=== PATIENT | male | born 1975 | race Caucasian/White ===

== ENCOUNTER 2018-03-25 09:05 | Emergency (ER) | payer BC, OTHER ==
[~2018-03-25 09:05] MED LIST: Sodium Chloride 0.9% 50 ML SDV FLUSH ONE
[2018-03-25] MEDS ORDERED: Sodium Chloride 0.9% 2,000 ML ONE (09:44)
[2018-03-25] MEDS ORDERED: Tetracaine HCl/PF 0.5% 4 ML Bottle EYEBOTH ONE (09:48)
--- NOTE | 2018-03-25 09:54 | EDM.PDOC ---
ED HPI GENERAL MEDICAL PROBLEM - General Chief Complaint: Eye Problems Stated Complaint: CHEMICAL IN EYES (8% COPPER) Time Seen by Provider: 03/25/18 09:48 Source of Information: Reports: Patient History Limitations: Reports: No Limitations - History of Present Illness INITIAL COMMENTS - FREE TEXT/NARRATIVE: Patient is a 42-year-old gentleman who presents to the emergency department this morning with a complaint of accidental chemical contact in eyes and face. Patient states that he was working on an irrigation pump, and back pressure sprayed chemicals in face and eyes. Chemical mixture includes ammonium hydroxide, copper sulfate, citric acid. states that he did not inhale nor have chemicals in his mouth. Patient denies shortness of breath, difficulty swallowing, chest pain, nausea or vomiting. Initial Ph on litmus paper was 7.0 Onset: Today, Sudden Duration: Minutes: Location: Reports: Face Quality: Reports: Burning Severity: Moderate Improves with: Reports: None Worsens with: Reports: None Context: Reports: Trauma (Chemical sprayed in face and eyes) Associated Symptoms: Reports: No Other Symptoms - Related Data Allergies Allergy/AdvReac Type Severity Reaction Status Date / Time azithromycin [From Zithromax] Allergy Dizziness Verified 03/25/18 09:57 codeine Allergy Fainting Verified 01/14/14 13:43 Home Meds: Home Meds Dapagliflozin Propanediol [Farxiga] 10 mg PO DAILY 03/25/18 [History] Fluconazole [Diflucan] 150 mg PO ASDIRECTED 03/25/18 [History] Lisinopril 10 mg PO DAILY 03/25/18 [History] Rosuvastatin Calcium 20 mg PO DAILY 03/25/18 [History] metFORMIN HCl [Metformin HCl ER] 1,000 mg PO BIDMEALS 03/25/18 [History] ED ROS GENERAL - Review of Systems Review Of Systems: ROS reveals no pertinent complaints other than HPI. Constitutional: Reports: No Symptoms HEENT: Reports: Eye Pain Cardiovascular: Reports: No Symptoms Endocrine: Reports: No Symptoms GI/Abdominal: Reports: No Symptoms : Reports: No Symptoms Musculoskeletal: Reports: No Symptoms Skin: Reports: No Symptoms Neurological: Reports: No Symptoms Psychiatric: Reports: No Symptoms Hematologic/Lymphatic: Reports: No Symptoms Immunologic: Reports: No Symptoms ED EXAM GENERAL W FULL EYE - Physical Exam Exam: See Below Exam Limited By: No Limitations General Appearance: Alert, WD/WN, Mild Distress Eye Exam: Bilateral Eye: Conjunctival Injection Visual Acuity (R) 20/: 20 Visual Acuity (L) 20/: 20 With Correction: No Eyelids: Bilateral: Normal Appearance Conjunctiva & Sclera: Bilateral: Injected Cornea Exam: Bilateral: Normal Appearance Extraocular Movements: Bilateral: Intact Pupils: Normal Accommodation Pupillary Reaction: Bilateral: Brisk Nose: Normal Inspection, Normal Mucosa, No Blood Throat/Mouth: Normal Inspection, Normal Oropharynx, No Airway Compromise Head: Atraumatic, Normocephalic Respiratory/Chest: No Respiratory Distress, Lungs Clear Cardiovascular: Regular Rate, Rhythm Extremities: Normal Inspection Neurological: Alert, Oriented, Normal Cognition Psychiatric: Normal Affect, Normal Mood Skin Exam: Warm, Dry, Intact, Normal Color, No Rash ED EYE w/ Add Procedure - Eye Procedure Alcaine Drops Administered: Yes Eye Irrigated w/ Saline (ccs): 2,000 Antibiotic Oinment/Drps Admin: Both Eyes Progress: PH is 7.0. Post irrigation. - Additional/Other Procedure(s) Other (Free Text) Procedure(s) [Text1]: No corneal abrasion or ulceration noted. Course - Orders/Labs/Meds Orders: Active Orders 24 hr Category Date Time Status Tetracaine HCl/PF [Tetracaine 0.5% Steri-Unit Nadia] Med 03/25/18 09:48 Once 1 ml EYEBOTH ASDIRECTED ONE Meds: Medications Discontinued Medications Generic Name Dose Route Start Last Admin Trade Name David PRN Reason Stop Dose Admin Sodium Chloride Confirm 03/25/18 09:44 Normal Saline Administered 03/25/18 09:45 Dose 2,000 mls @ as directed .ROUTE .STK-MED ONE - Re-Assessments/Exams Free Text/Narrative Re-Assessment/Exam: 03/25/18 10:51 Patient afebrile, nontoxic appearing, vital signs stable. Patient tolerated procedure very well. PH remained the same at 7.0. Visual acuity remain the same as well. Erythromycin ointment was administered. Initially family thought he was allergic to Zithromax, however, that was taken in conjunction with codeine at one time and he became dizzy. No true allergic reaction to azithromycin. Patient will follow-up with local elephant keeper tomorrow. If unable to then will return to emergency department for recheck. Departure - Departure Time of Disposition: 10:59 Disposition: Home, Self-Care 01 Condition: Good Clinical Impression: Chemical conjunctivitis of both eyes - Discharge Information Instructions: Chemical Conjunctivitis, Adult, [id number] Referrals: Breanna Ochoa MD [Primary Care Provider] - Forms: ED Department Discharge Additional Instructions: Follow-up at optometry tomorrow. If unable, then either follow-up with Dr. Jojo Bang in the clinic, or in the emergency department for recheck. Use erythromycin ointment twice a day. Cool compress for discomfort. - My Orders Last 24 Hours: My Active Orders 03/25/18 09:48 Tetracaine HCl/PF [Tetracaine 0.5% Steri-Unit Nadia] 1 ml EYEBOTH ASDIRECTED ONE - Assessment/Plan Last 24 Hours: My Active Orders 03/25/18 09:48 Tetracaine HCl/PF [Tetracaine 0.5% Steri-Unit Nadia] 1 ml EYEBOTH ASDIRECTED ONE Assessment:: Chemical conjunctivitis Plan: Follow-up with elephant keeper tomorrow.
[2018-03-25] MEDS ORDERED: Erythromycin Base 0.5% Ophth Oint 1 GM Tube EYEBOTH ONE (10:48)
[2018-03-25] MEDS ORDERED: Erythromycin Base 0.5% Ophth Oint 3.5 GM Tube ONE (10:52)
== END 2018-03-25 11:10 | disposition home or self-care (01) ==
LOC: KA.ED 09:05
DX: H10.213 Acute toxic conjunctivitis, bilateral (principal); Z79.899 Other long term (current) drug therapy; Z88.1 Allergy status to other antibiotic agents; Z88.5 Allergy status to narcotic agent
CPT/HCPCS: 99283; A9270; J7030

== ENCOUNTER 2019-02-20 11:43 | Emergency (ER) | payer BC ==
--- NOTE | 2019-02-20 12:30 | EDM.PDOC ---
ED HPI GENERAL MEDICAL PROBLEM - General Chief Complaint: General Stated Complaint: CELLULITIS Time Seen by Provider: 02/20/19 11:59 Source of Information: Reports: Patient, Significant Other History Limitations: Reports: No Limitations - History of Present Illness INITIAL COMMENTS - FREE TEXT/NARRATIVE: Patient presents with left leg pain and redness, and fever. The leg pain started two days ago and the fever yesterday, up to 100.4. He denies any injury or puncture of leg. He thinks he has had MRSA some time in the past from an abscess in his groin. Yesterday he was in [place] and went to urgent care and was started on Augmentin. He has had two doses starting about 18 hours ago. He isn't feeling any better and the redness has extended a little further than it was yesterday. left leg Pain Score (Numeric/FACES): 4 - Related Data Allergies Allergy/AdvReac Type Severity Reaction Status Date / Time azithromycin [From Zithromax] Allergy Dizziness Verified 02/20/19 12:37 codeine Allergy Fainting Verified 02/20/19 12:37 Home Meds: Home Meds Aspirin [Halfprin] 81 mg PO DAILY 03/25/18 [History] Lisinopril 10 mg PO DAILY 03/25/18 [History] Rosuvastatin Calcium 20 mg PO DAILY 03/25/18 [History] metFORMIN HCl [Metformin HCl ER] 1,000 mg PO BIDMEALS 03/25/18 [History] Amoxicillin/Clavulanate K [Augmentin 875-125 MG] 1 tab PO BID 02/20/19 [History] Past Medical History Cardiovascular History: Reports: High Cholesterol, Hypertension Endocrine/Metabolic History: Reports: Diabetes, Type II Social & Family History - Caffeine Use Caffeine Use: Reports: Coffee ED ROS GENERAL - Review of Systems Review Of Systems: See Below Constitutional: Reports: Fever, Malaise Respiratory: Denies: Shortness of Breath, Cough Cardiovascular: Denies: Chest Pain, Lightheadedness, Syncope GI/Abdominal: Denies: Abdominal Pain, Constipation, Diarrhea, Nausea, Vomiting : Denies: Discharge, Dysuria, Flank Pain Musculoskeletal: Reports: Leg Pain. Denies: Neck Pain, Shoulder Pain, Arm Pain , Back Pain, Hand Pain, Foot Pain Skin: Denies: Cyanosis, Jaundice, Mottled, Pallor, Diaphoresis Neurological: Denies: Confusion, Seizure, Syncope, Trouble Speaking, Difficulty Walking Psychiatric: Denies: Agitation, Anxiety, Confusion Hematologic/Lymphatic: Denies: Anemia, Easy Bleeding ED EXAM, GENERAL - Physical Exam Exam: See Below Exam Limited By: No Limitations General Appearance: Alert, WD/WN, No Apparent Distress Eye Exam: Bilateral Eye: EOMI, Normal Inspection, PERRL Ears: Normal External Exam, Hearing Grossly Normal Nose: Normal Inspection, No Blood Throat/Mouth: Normal Inspection, Normal Lips, Normal Voice, No Airway Compromise Head: Atraumatic, Normocephalic Neck: Normal Inspection, Full Range of Motion Respiratory/Chest: No Respiratory Distress, Lungs Clear, Normal Breath Sounds Cardiovascular: Regular Rate, Rhythm, No Murmur GI/Abdominal: Normal Bowel Sounds, Soft, Non-Tender, No Organomegaly, No Distention Extremities: Redness (left medial distal thigh approximately 4x8 inches) Neurological: Alert, Oriented, Normal Cognition, No Motor/Sensory Deficits Psychiatric: Normal Affect, Normal Mood Skin Exam: Warm, Dry, Intact, Normal Color (except leg lesion), No Rash Course - Vital Signs Last Recorded V/S: Last Vital Signs Temp 98.2 F 02/20/19 11:52 Pulse 95 02/20/19 11:52 Resp 20 02/20/19 11:52 BP 125/69 02/20/19 11:52 Pulse Ox 97 02/20/19 11:52 - Orders/Labs/Meds Orders: Active Orders 24 hr Category Date Time Status CULTURE BLOOD [BC] Stat Lab 02/20/19 12:22 Ordered CULTURE BLOOD [BC] Stat Lab 02/20/19 12:22 Ordered Blood Culture x2 Reflex Set [OM.PC] Stat Oth 02/20/19 12:21 Ordered Labs: Laboratory Tests 02/20/19 02/20/19 02/20/19 Range/Units 12:22 12:22 12:22 WBC 5.62 (5.00-10.00) 10^3/uL RBC 5.21 (4.50-6.00) 10^6/uL Hgb 16.5 (13.0-17.0) g/dL Hct 46.9 (40.0-52.0) % MCV 90.0 (82.0-92.0) fL MCH 31.7 H (27.0-31.0) pg MCHC 35.2 (32.0-36.0) g/dL RDW 12.6 (11.5-14.5) % Plt Count 108 L (150-400) 10^3/uL MPV 9.6 (7.4-10.4) fL Immature Gran % (Auto) 0.2 (0.0-5.0) % Neut % (Auto) 64.3 (50.0-70.0) % Lymph % (Auto) 18.9 L (20.0-40.0) % [place] % (Auto) 15.7 H (2.0-8.0) % Eos % (Auto) 0.7 L (1.0-3.0) % Baso % (Auto) 0.2 (0.0-1.0) % Immature Gran # (Auto) 0.01 (0.00-0.50) 10^3/uL Neut # (Auto) 3.62 (2.50-7.00) 10^3/uL Lymph # (Auto) 1.06 (1.00-4.00) 10^3/uL [place] # (Auto) 0.88 H (0.10-0.80) 10^3/uL Eos # (Auto) 0.04 L (0.10-0.30) 10^3/uL Baso # (Auto) 0.01 (0.00-0.10) 10^3/uL Sodium 138 (136-145) mmol/L Potassium 4.0 (3.3-5.3) mmol/L Chloride 103 (98-115) mmol/L Carbon Dioxide 24.2 (21.0-32.0) mmol/L Anion Gap 14.8 (5-15) mmol/L BUN 11 (6-25) mg/dL Creatinine 0.78 (0.51-1.17) mg/dL Est Cr Clr Drug Dosing 115.71 mL/min Estimated GFR (MDRD) > 60 mL/min Glucose 210 H (75 - 99) mg/dL Lactic Acid 3.5 H (0.4-2.0) mmol/L Calcium 8.8 (8.7-10.3) mg/dL - Re-Assessments/Exams Free Text/Narrative Re-Assessment/Exam: 02/20/19 13:08 Labs all good. With no fever or leukocytosis and patient feeling okay now, I discussed treatment plan with Dr. Alfonso (PCP) and with patient. Patient discharged to home in stable condition. 02/20/19 13:10 Lactic acid is a little elevated at 3.5; blood cultures are pending. Departure - Departure Time of Disposition: 13:05 Disposition: Home, Self-Care 01 Condition: Good Clinical Impression: Left leg cellulitis, History of MRSA infection - Discharge Information Instructions: Cellulitis, Adult, [id number] Referrals: Breanna Ochoa MD [Primary Care Provider] - Forms: ED Department Discharge Additional Instructions: 1. Drink 8 cups of water daily. 2. Take the Bactrim as directed. 3. Stop the Augmentin. 4. Follow up tomorrow in clinic if still worsening. Otherwise recheck with your doctor in ten days if not completely resolved. - My Orders Last 24 Hours: My Active Orders 02/20/19 12:21 Blood Culture x2 Reflex Set [OM.PC] Stat 02/20/19 12:22 CULTURE BLOOD [BC] Stat CULTURE BLOOD [BC] Stat - Assessment/Plan Last 24 Hours: My Active Orders 02/20/19 12:21 Blood Culture x2 Reflex Set [OM.PC] Stat 02/20/19 12:22 CULTURE BLOOD [BC] Stat CULTURE BLOOD [BC] Stat
[2019-02-20 13:04] LABS: ANION GAP 14.8 mmol/L (5-15); CHLORIDE,CL 103 mmol/L (98-115); SODIUM,NA 138 mmol/L (136-145)
== END 2019-02-20 13:16 | disposition home or self-care (01) ==
LOC: KA.ED 11:43
DX: L03.116 Cellulitis of left lower limb (principal); I10 Essential (primary) hypertension; E11.9 Type 2 diabetes mellitus without complications; Z88.1 Allergy status to other antibiotic agents; Z88.5 Allergy status to narcotic agent; Z86.14 Personal history of Methicillin resistant Staphylococcus aureus infection; Z79.82 Long term (current) use of aspirin; Z79.899 Other long term (current) drug therapy
CPT/HCPCS: 36415; 80048; 83605; 85025; 87040; 99283

== ENCOUNTER 2020-12-21 21:31 | Emergency (ER) | payer BC ==
[2020-12-21] MEDS ORDERED: Sodium Chloride 0.9% 10 ML Syringe FLUSH PRN (21:37)
[2020-12-21] MEDS ORDERED: Sodium Chloride 0.9% 1,000 ML IV ONE ×2 (21:38→22:36)
[2020-12-21] MEDS ORDERED: Ondansetron 4 MG/2 ML SDV IVPUSH ONE (21:38)
[2020-12-21] MEDS ORDERED: Ketorolac 30 MG/ML SDV IVPUSH ONE (21:39)
--- NOTE | 2020-12-21 21:39 | EDM.PDOC ---
ED HPI GENERAL MEDICAL PROBLEM - General Chief Complaint: General Stated Complaint: HYPERTENSION, N/V Time Seen by Provider: 12/21/20 21:31 Source of Information: Reports: Patient, Family - History of Present Illness INITIAL COMMENTS - FREE TEXT/NARRATIVE: Aleksandr, 45 year old male, presents to the emergency department by private vehicle accompanied by his . He stated roughly at 1930 or so that he did not feel well after having a cup of coffee and eating part of a cucumber. He felt general malaise with the onset of a headache similar to previous headaches strength, but this headache was more the top of his head or chronic recurring headaches are unilateral. that he experiences roughly twice monthly. 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 His glucose was over 300 when checked at home and blood pressure was significantly elevated. As he was transported here by private vehicle he became nauseous upon arrival at the hospital and had significant emesis of his coffee and food product he had eaten in the past hour. Mild abdominal discomfort with nausea persisting as well as headache with some photophobia. Headache is described as having visual changes that I would interpret as an aura that then resolved with pain of the headache ensuing. He is a known diabetic and is due for upcoming lab work currently on lisinopril 10mg, glipizide, Metformin, and Ozempic. ..His states that he drinks a significant amount of coffee predominantly in the morning and early part of the day Onset: Today, Sudden Duration: Minutes:, Getting Worse Location: Reports: Head - Related Data Allergies Allergy/AdvReac Type Severity Reaction Status Date / Time azithromycin [From Zithromax] Allergy Dizziness Verified 12/21/20 22:03 codeine Allergy Fainting Verified 12/21/20 22:03 Home Meds: Home Meds Aspirin [Halfprin] 81 mg PO DAILY 03/25/18 [History] Lisinopril 10 mg PO DAILY 03/25/18 [History] Rosuvastatin Calcium 20 mg PO BEDTIME 03/25/18 [History] metFORMIN HCl [Metformin HCl ER] 1,500 mg PO DAILY 03/25/18 [History] Semaglutide [Ozempic] 0.25 mg SQ Q7D 12/21/20 [History] metFORMIN [Glucophage] 1,000 mg PO BEDTIME 12/21/20 [History] Past Medical History Cardiovascular History: Reports: High Cholesterol, Hypertension Neurological History: Reports: Headaches, Chronic, Migraines. Denies: Concussion, Head Trauma Endocrine/Metabolic History: Reports: Diabetes, Type II Dermatologic History: Reports: Cellulitis - Infectious Disease History Infectious Disease History: Reports: MRSA Social & Family History - Family History Family Medical History: No Pertinent Family History - Tobacco Use Tobacco Use Status *Q: Never Tobacco User Tobacco Use Within Last Twelve Months: No - Caffeine Use Caffeine Use: Reports: Coffee - Alcohol Use Alcohol Use History: No ED ROS GENERAL - Review of Systems Review Of Systems: See Below Constitutional: Reports: Malaise HEENT: Reports: No Symptoms Respiratory: Reports: No Symptoms Cardiovascular: Reports: No Symptoms Endocrine: Reports: Fatigue, High Glucose GI/Abdominal: Reports: Nausea, Vomiting : Reports: No Symptoms Musculoskeletal: Reports: No Symptoms Skin: Reports: No Symptoms Neurological: Reports: Headache Psychiatric: Reports: No Symptoms Hematologic/Lymphatic: Reports: No Symptoms Immunologic: Reports: No Symptoms ED EXAM, GENERAL - Physical Exam Exam: See Below Free Text/Narrative:: Alert, oriented, in nauseous distress. Stomach contents appear early digestive stage. HEENT is negative discharge or deformity. PERRLA no icterus no injection. Limited nondilated funduscopy as he is extremely photophobic. [place] moist mucous membranes. Neck is soft supple no JVD nor bruit is appreciated. Thorax is overall clear with no wheezes no crackles. Cardiac is regular I do not appreciate any murmur. Abdomen has bowel sounds present it is slightly firm but nontender no guarding no mass palpable. Moves extremities about with no difficulty, and with full symmetry, and strength. He was able to ambulate to the vehicle and has he ambulated from the vehicle to the department was placed in a wheelchair and brought to the room. #1 Interpretation EKG Date: 12/21/20 Time: 21:50 Rhythm: NSR Rate (Beats/Min): 79 [place]: Normal P-Wave: Present QRS: Normal ST-T: Normal QT: Normal Comparison: NA - No Prior EKG Course - Vital Signs Last Recorded V/S: Last Vital Signs Temp 96.6 F L 12/21/20 21:55 Pulse 84 12/21/20 21:55 Resp 20 12/21/20 21:55 BP 141/98 H 12/21/20 21:55 Pulse Ox 95 12/21/20 21:55 - Orders/Labs/Meds Orders: Active Orders 24 hr Category Date Time Status Blood Glucose Check, Bedside [RC] ONETIME Care 12/21/20 21:37 Active EKG Documentation Completion [RC] ASDIRECTED Care 12/21/20 21:35 Active Peripheral IV Care [RC] . DIRECTED Care 12/21/20 21:37 Active Abdomen Series w Chest 1V [CR] Stat Exams 12/21/20 21:35 Ordered AMYLASE [CHEM] Stat Lab 12/21/20 21:34 Ordered COMPREHENSIVE METABOLIC PN,CMP [CHEM] Stat Lab 12/21/20 21:34 Ordered LACTIC ACID [CHEM] Stat Lab 12/21/20 21:34 Ordered LIPASE [CHEM] Stat Lab 12/21/20 21:34 Ordered TROPONIN I HIGH SENSITIVITY [CHEM] Stat Lab 12/21/20 21:34 Ordered Sodium Chloride 0.9% [Normal Saline] 1,000 ml Med 12/21/20 21:38 Active IV .BOLUS Sodium Chloride 0.9% [Saline Flush] Med 12/21/20 21:37 Active 10 ml FLUSH Q8HR PRN Peripheral IV Insertion Adult [OM.PC] Routine Oth 12/21/20 21:37 Ordered EKG 12 Lead [EK] Urgent Ther 12/21/20 21:34 Ordered Medication Orders Sodium Chloride (Normal Saline) 1,000 mls @ 999 mls/hr IV .BOLUS ONE Stop: 12/21/20 22:38 Last Admin: 12/21/20 21:51 Dose: 999 mls/hr Documented by: WILDA Sodium Chloride (Sodium Chloride 0.9% 10 Ml Syringe) 10 ml FLUSH Q8HR PRN PRN Reason: keep vein open Labs: Laboratory Tests 12/21/20 Range/Units 21:41 WBC 8.39 (5.00-10.00) 10^3/uL RBC 5.48 (4.50-6.00) 10^6/uL Hgb 17.5 H (13.0-17.0) g/dL Hct 47.7 (40.0-52.0) % MCV 87.0 (82.0-92.0) fL MCH 31.9 H (27.0-31.0) pg MCHC 36.7 H (32.0-36.0) g/dL RDW 12.4 (11.5-14.5) % Plt Count 137 L (150-400) 10^3/uL MPV 9.7 (7.4-10.4) fL Immature Gran % (Auto) 0.4 (0.0-5.0) % Neut % (Auto) 39.5 L (50.0-70.0) % Lymph % (Auto) 48.5 H (20.0-40.0) % [place] % (Auto) 10.6 H (2.0-8.0) % Eos % (Auto) 1.0 (1.0-3.0) % Baso % (Auto) 0.0 (0.0-1.0) % Neut # (Auto) 3.32 (2.50-7.00) 10^3/uL Lymph # (Auto) 4.07 H (1.00-4.00) 10^3/uL [place] # (Auto) 0.89 H (0.10-0.80) 10^3/uL Eos # (Auto) 0.08 L (0.10-0.30) 10^3/uL Baso # (Auto) 0.00 (0.00-0.10) 10^3/uL Immature Gran # (Auto) 0.03 (0.00-0.50) 10^3/uL Meds: Medications Generic Name Dose Route Start Last Admin Trade Name Freq PRN Reason Stop Dose Admin Sodium Chloride 1,000 mls @ 999 mls/hr 12/21/20 21:38 12/21/20 21:51 Normal Saline IV 12/21/20 22:38 999 mls/hr .BOLUS ONE Administration Sodium Chloride 10 ml 12/21/20 21:37 Sodium Chloride 0.9% 10 Ml Syringe FLUSH Q8HR PRN keep vein open Discontinued Medications Generic Name Dose Route Start Last Admin Trade Name Freq PRN Reason Stop Dose Admin Ketorolac Tromethamine 30 mg 12/21/20 21:39 12/21/20 21:48 Ketorolac 30 Mg/Ml Sdv IVPUSH 12/21/20 21:40 30 mg ONETIME ONE Administration Ondansetron HCl 8 mg 12/21/20 21:38 12/21/20 21:47 Ondansetron 4 Mg/2 Ml Sdv IVPUSH 12/21/20 21:39 8 mg ONETIME ONE Administration - Re-Assessments/Exams Free Text/Narrative Re-Assessment/Exam: 12/21/20 22:45 At the time laboratory analysis concludes, states he is feeling much better. Offered observation status which he declines stating I am good enough that I can go home when the fluid completes. Advised that we need to do a Covid screen if planning to admit and he again states I am feeling good enough that I will go home declining the offer of observation admission status. Free Text/Narrative Re-Assessment/Exam: 12/21/20 23:18 Again offered admission which he declines stating he will go home and follow-up this week in the clinic. States there has been previous work-up and discussion on the questionable left lung base opacity that was determined to be a benign nodule. 12/21/20 23:21 Departure - Departure Time of Disposition: 23:18 Disposition: Home, Self-Care 01 Condition: Good Clinical Impression: Headache, Nausea & vomiting, Diabetes 1.5, managed as type 2 - Discharge Information *PRESCRIPTION DRUG MONITORING PROGRAM REVIEWED*: Not Applicable *COPY OF PRESCRIPTION DRUG MONITORING REPORT IN PATIENT GHASSAN: Not Applicable Instructions: Migraine Headache, [id number], General Headache Without Cause, Diabetes Mellitus and Standards of Medical Care, Nausea, Adult, [id number] Referrals: Breanna Ochoa MD [Primary Care Provider] - Forms: ED Department Discharge Additional Instructions: Your blood sugar level was elevated, higher than what we would anticipate with a little bit that you would had to eat. The headache has improved nicely and likely the nausea and vomiting was part of the headache syndrome you are experiencing as well as the high blood sugar. You have been given fluid supplement here as you're slightly dehydrated which added to the combination of all other factors. If you change your mind and feel that you are not doing as well as you iope for, we can admit you for observation overnight if you would choose. You need to make sure you are eating according to your diabetic plan, continuing all your medications, and following up with Dr. Carlos either Sunday or what ever you are able to schedule with her this week in the clinic. Continue all your medications as directed, we are making no changes in any of them tonight. You need to be seen in the clinic this week Sunday or Sunday or if symptoms recur or worsen consider returning to the emergency department for potential admission. Call questions or concerns should develop outside of clinic hours otherwise contact your clinic. Sepsis Event Note (ED) - Focused Exam Vital Signs: Vital Signs Temp Pulse Resp BP Pulse Ox 12/21/20 21:55 96.6 F L 84 20 141/98 H 95 - Problem List & Annotations (1) Diabetes 1.5, managed as type 2 SNOMED Code(s): 784867625 Code(s): E13.9 - OTHER SPECIFIED DIABETES MELLITUS WITHOUT COMPLICATIONS Status: Acute Priority: High (2) Nausea & vomiting SNOMED Code(s): 64010278 Code(s): R11.2 - NAUSEA WITH VOMITING, UNSPECIFIED Status: Acute Priority: High Qualifiers: Vomiting type: unspecified Vomiting Intractability: non-intractable Qualified Code(s): R11.2 - Nausea with vomiting, unspecified (3) Headache SNOMED Code(s): 77730529 Code(s): R51.9 - HEADACHE, UNSPECIFIED Status: Acute Priority: High Qualifiers: Headache type: other headache syndrome Qualified Code(s): G44.89 - Other headache syndrome (4) Fatigue SNOMED Code(s): 09370513 Code(s): R53.83 - OTHER FATIGUE Status: Acute Priority: High Qualifiers: Fatigue type: unspecified Qualified Code(s): R53.83 - Other fatigue (5) Hypertension SNOMED Code(s): 71704129 Code(s): I10 - ESSENTIAL (PRIMARY) HYPERTENSION Status: Acute Priority: High Qualifiers: Hypertension type: essential hypertension Qualified Code(s): I10 - [place] (primary) hypertension - Problem List Review Problem List Initiated/Reviewed/Updated: Yes - My Orders Last 24 Hours: My Active Orders 12/21/20 21:34 AMYLASE [CHEM] Stat COMPREHENSIVE METABOLIC PN,CMP [CHEM] Stat LACTIC ACID [CHEM] Stat LIPASE [CHEM] Stat TROPONIN I HIGH SENSITIVITY [CHEM] Stat EKG 12 Lead [EK] Urgent 12/21/20 21:35 EKG Documentation Completion [RC] ASDIRECTED Abdomen Series w Chest 1V [CR] Stat 12/21/20 21:37 Blood Glucose Check, Bedside [RC] ONETIME Peripheral IV Care [RC] . DIRECTED Sodium Chloride 0.9% [Saline Flush] 10 ml FLUSH Q8HR PRN Peripheral IV Insertion Adult [OM.PC] Routine 12/21/20 21:38 Sodium Chloride 0.9% [Normal Saline] 1,000 ml IV .BOLUS - Assessment/Plan Last 24 Hours: My Active Orders 12/21/20 21:34 AMYLASE [CHEM] Stat COMPREHENSIVE METABOLIC PN,CMP [CHEM] Stat LACTIC ACID [CHEM] Stat LIPASE [CHEM] Stat TROPONIN I HIGH SENSITIVITY [CHEM] Stat EKG 12 Lead [EK] Urgent 12/21/20 21:35 EKG Documentation Completion [RC] ASDIRECTED Abdomen Series w Chest 1V [CR] Stat 12/21/20 21:37 Blood Glucose Check, Bedside [RC] ONETIME Peripheral IV Care [RC] . DIRECTED Sodium Chloride 0.9% [Saline Flush] 10 ml FLUSH Q8HR PRN Peripheral IV Insertion Adult [OM.PC] Routine 12/21/20 21:38 Sodium Chloride 0.9% [Normal Saline] 1,000 ml IV .BOLUS Plan: Your blood sugar level was elevated, higher than what we would anticipate with a little bit that you would had to eat. The headache has improved nicely and likely the nausea and vomiting was part of the headache syndrome you are experiencing as well as the high blood sugar. You have been given fluid supplement here as you're slightly dehydrated which added to the combination of all other factors. If you change your mind and feel that you are not doing as well as you iope for, we can admit you for observation overnight if you would choose. You need to make sure you are eating according to your diabetic plan, continuing all your medications, and following up with Dr. Carlos either Sunday or what ever you are able to schedule with her this week in the clinic. Continue all your medications as directed, we are making no changes in any of them tonight. You need to be seen in the clinic this week Sunday or Sunday or if symptoms recur or worsen consider returning to the emergency department for potential admission. Call questions or concerns should develop outside of clinic hours otherwise contact your clinic.
[2020-12-21 22:36] LABS: ANION GAP 18.2 mmol/L (5-15); CHLORIDE,CL 99 mmol/L (98-107); SODIUM,NA 138 mmol/L (136-145)
--- NOTE | 2020-12-22 08:05 | CR ---
[id number] RAD/RAD Abdomen 3V Exam: RAD Abdomen 3V Clinical Data: HYPERTENSION HYPERGLYCEMIA COMPARISON: CORRELATION IS MADE WITH DECEMBER 06, 2007 FINDINGS: There is question of an early infiltrate at the left lung base The lungs otherwise are clear There are surgical changes of the left shoulder There is no free air under the diaphragm The cardiomediastinal contour is unchanged There is no bowel obstruction There is abundant fecal matter There is no organomegaly or pathologic calcification IMPRESSION: QUESTION OF EARLY INFILTRATE AT LEFT BASE OBSTIPATION Abimael Holt MD 12/22/20 0804 Thank you for allowing us to participate in the care of your patient.
== END 2020-12-21 23:22 | disposition home or self-care (01) ==
LOC: KA.ED 21:31
DX: E13.9 Other specified diabetes mellitus without complications (principal); R51.9 Headache, unspecified; R11.2 Nausea with vomiting, unspecified; E78.00 Pure hypercholesterolemia, unspecified; I10 Essential (primary) hypertension; Z88.1 Allergy status to other antibiotic agents; Z88.5 Allergy status to narcotic agent; Z79.82 Long term (current) use of aspirin; Z79.84 Long term (current) use of oral hypoglycemic drugs; Z79.899 Other long term (current) drug therapy
CPT/HCPCS: 36415; 74022; 80053; 82150; 83605; 83690; 84484; 85025; 93005; 96374; 96375; 99284; 99285-25; J1885; J2405; J7030